=== PATIENT | male | born 1970 | race Caucasian/White ===

== ENCOUNTER 2019-01-15 10:01 | Day surgery (SDC) | payer OTHER ==
[2019-01-15] MEDS ORDERED: FLUMAZENIL 0.5 MG/5 ML MDV IVP PRN (10:26)
[2019-01-15] MEDS ORDERED: HEPARIN 10,000 UNIT/10 ML MDV (1,000 UNIT/ML) IVP PRN (10:26)
[2019-01-15] MEDS ORDERED: fentaNYL 100 MCG/2 ML INJ IVP PRN (10:26)
[2019-01-15] MEDS ORDERED: ALTEPLASE 2 MG VIAL IVP PRN (10:26)
[2019-01-15] MEDS ORDERED: MIDAZOLAM 2 MG/2 ML VIAL IVP PRN (10:26)
[2019-01-15] MEDS ORDERED: NALOXONE HCL 0.4 MG/ML INJ IVP PRN (10:26)
[2019-01-15] MEDS ORDERED: NS 1,000 ML IV SCH (10:30)
[2019-01-15] MEDS ORDERED: FLUMAZENIL 0.5 MG/5 ML MDV IVP ONE (11:34)
[2019-01-15] MEDS ORDERED: MIDAZOLAM 2 MG/2 ML VIAL ONE (11:35)
[2019-01-15] MEDS ORDERED: fentaNYL 100 MCG/2 ML INJ ONE ×2 (11:35)
[2019-01-15] MEDS ORDERED: NALOXONE HCL 0.4 MG/ML INJ ONE (11:36)
[2019-01-15] MEDS ORDERED: LIDOCAINE 1% 300 MG/30 ML SDV ONE (11:48)
--- NOTE | 2019-01-15 11:51 | PDPROPOC ---
Sedation Plan of Care Sedation Plan of Care: vital signs stable, mental status noted, patient educated of risks, benefits, alternatives, patient can tolerate sedation ASA Classification: ASA 2 Planned drugs: fentanyl, midazolam Mallampati Score: Class 2 Mallampati Reference Image: Patient passed 3-3-2 rule?: Yes
--- NOTE | 2019-01-15 11:52 | PDRADPRE ---
Radiology History & Physical Indication for procedure: other (Perigastric nodule concerning for maligancy. Plan for CT guided core biopsy. ) Home medications: Aleve 220 mg PO PRN PRN 01/09/19 [Last Taken Unknown] Escitalopram Oxalate 10 mg PO DAILY 01/09/19 [Last Taken Unknown] Flonase Nasal [place] 01/09/19 [Last Taken Unknown] Lisinopril 10 mg PO DAILY 01/09/19 [Last Taken Unknown] Pepcid 20 mg PO PRN PRN 01/09/19 [Last Taken Unknown] Sildenafil Citrate 40 mg PO PRN PRN 01/09/19 [Last Taken Unknown] Vit B Comp with C/Calcium Carb 01/09/19 [Last Taken Unknown] Vitamin D3 01/09/19 [Last Taken Unknown] ZYRTEC 10 mg PO PRN PRN 01/09/19 [Last Taken Unknown] Allergies/Adverse Reactions: No Known Allergies Allergy (Unverified 05/26/12 10:52) Mental status: A&Ox3 Heart exam: regular rate and rhythm Lungs exam: clear to auscultation Mallampati Score: Class 2
[2019-01-15] MEDS ORDERED: ONDANSETRON 4 MG/2 ML VIAL IVP PRN (13:08)
[2019-01-15] MEDS ORDERED: oxyCODONE IR 5 MG TAB PO PRN (13:08)
--- NOTE | 2019-01-15 13:10 | PDRADPN ---
Radiology Procedure Note Date of Procedure: 01/15/19 Radiologist: Nikos Pichardo Anesthesia: IV Sedation Pre-op Diagnosis: Abd mass Post-op Diagnosis: Abd mass Indication: Abd mass Procedure: CT guided biopsy Finding(s): 18 ga cores transhepatic approach. No hemorrhage on post CT scan. Inf/Abcess present in the surg proc area at time of surgery?: No
[2019-01-15] MEDS ORDERED: ACETAMINOPHEN 500 MG TAB PO ONE (16:45)
[2019-01-15] MEDS ORDERED: ONDANSETRON DISINTEGRATING 4 MG TAB ONE (16:45)
[2019-01-15] MEDS ORDERED: ACETAMINOPHEN 500 MG TAB ONE (16:45)
[2019-01-15] MEDS ORDERED: ONDANSETRON DISINTEGRATING 4 MG TAB PO ONE (17:00)
[2019-01-15 17:11] VITALS: BP 138/75
== END 2019-01-15 16:45 | disposition home or self-care (01) ==
LOC: FIMAGING 10:01
PROVIDERS: ATTEND Radiology Vascular & Interventional Radiology
DX: R59.0 Localized enlarged lymph nodes (principal); F32.9 Major depressive disorder, single episode, unspecified; F41.8 Other specified anxiety disorders; Z80.1 Family history of malignant neoplasm of trachea, bronchus and lung; Z80.8 Family history of malignant neoplasm of other organs or systems; R93.89 Abnormal findings on diagnostic imaging of other specified body structures
CPT/HCPCS: 88184-90; 88185-91; J2250; J2310; J3010

== ENCOUNTER 2019-02-13 14:24 | Day surgery (SDC) | payer OTHER ==
[2019-02-13] MEDS ORDERED: PROPOFOL/EMULSION 500 MG/50 ML BOTTLE IV ONE ×2 (14:35→16:00)
[2019-02-13] MEDS ORDERED: LIDOCAINE 2% 2 ML INJ ONE (14:35)
[2019-02-13] MEDS ORDERED: LR 1,000 ML IV ONE (14:36)
[2019-02-13] MEDS ORDERED: ceFAZolin 2 GM/DEXTROSE 100 ML IV ONE (14:52)
--- NOTE | 2019-02-13 14:52 | PDHPUP ---
History & Physical Update H&P update statement: This history and physical update is based on an assessment of the patient which was completed after admission or registration (within 24 hours), but prior to the surgery/procedure. H&P update: H&P reviewed & patient examined, no change in patient's condition since H&P completed
[2019-02-13] MEDS ORDERED: LIDOCAINE 1% 300 MG/30 ML SDV ONE (15:50)
[2019-02-13] MEDS ORDERED: BUPIVACAINE 0.5% 30 ML SDV ONE (15:50)
[2019-02-13] MEDS ORDERED: MIDAZOLAM 2 MG/2 ML VIAL IVP ONE (15:57)
--- NOTE | 2019-02-13 15:57 | PDANEPAE ---
ANE History of Present Illness enlarged lymph node ANE Past Medical History - Cardiovascular History Hx Hypertension: Yes Hx Arrhythmias: No Hx Chest Pain: No Hx Coronary Artery / Peripheral Vascular Disease: No Hx CHF / Valvular Disease: No Hx Palpitations: No - Pulmonary History Hx COPD: No Hx Asthma/Reactive Airway Disease: No Hx Recent Upper Respiratory Infection: No Hx Oxygen in Use at Home: No Hx Sleep Apnea: No Sleep Apnea Screening Result - Last Documented: Negative Pulmonary History Comment: SINUS INFECTIONS - Neurologic History Hx Cerebrovascular Accident: No Hx Seizures: No Hx Dementia: No Neurologic History Comment: intermittent Memory difficulty;. 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 sciatica. OCCAS HIVES - Chronic Pain History Chronic Pain: Yes (lower back pain) - Surgical History Prior Surgeries: BX IR PROCEDURE. vasectomy 2004;. wisdom teeth extraction; ANE Review of Systems Review of systems is: negative Review of Systems: - Exercise capacity Exercise capacity: >=4 METS METS (RN): 4 METS ANE Patient History - Allergies Allergies/Adverse Reactions: No Known Allergies Allergy (Unverified 05/26/12 10:52) - Home Medications Home medications: home medication list seen and reviewed Home Medications: Aleve 220 mg PO PRN PRN 01/09/19 [Last Taken 2 Days Ago ~02/11/19] Escitalopram Oxalate 10 mg PO DAILY 01/09/19 [Last Taken 02/13/19] Flonase Nasal [place] 01/09/19 [Last Taken 1 Week Ago ~02/06/19] Lisinopril 10 mg PO DAILY 01/09/19 [Last Taken 02/13/19] Pepcid 20 mg PO PRN PRN 01/09/19 [Last Taken 1 Week Ago ~02/06/19] Sildenafil Citrate 40 mg PO PRN PRN 01/09/19 [Last Taken 2 Weeks Ago ~01/30/19] Vit B Comp with C/Calcium Carb 01/09/19 [Last Taken 02/12/19] Vitamin D3 01/09/19 [Last Taken 02/12/19] ZYRTEC 10 mg PO PRN PRN 01/09/19 [Last Taken 02/06/19] - NPO status NPO Status: no food or drink >8 hours NPO Since - Liquids (Date): 02/13/19 NPO Since - Liquids (Time): 06:45 NPO Since - Solids (Date): 02/12/19 NPO Since - Solids (Time): 12:30 - Smoking Hx Smoking Status: Never smoked - Family Anes Hx Family Hx Anesthesia Complications: denies ANE Labs/Vital Signs - Vital Signs Vital Signs: reviewed preoperatively; see RN documention for details Blood Pressure: 150/102 Heart Rate: 84 Respiratory Rate: 16 O2 Sat (%): 92 Height: 175.26 cm Weight: 83.915 kg ANE Physical Exam - Airway Neck exam: FROM Mallampati Score: Class 2 Mouth exam: normal dental/mouth exam - Pulmonary Pulmonary: no respiratory distress, clear to auscultation - Cardiovascular Cardiovascular: regular rate and rhythym - ASA Status ASA Status: II ANE Anesthesia Plan Anesthesia Plan: GA w LMA
[2019-02-13] MEDS ORDERED: PROPOFOL 200 MG/20 ML VIAL ONE (16:00)
[2019-02-13] MEDS ORDERED: fentaNYL 100 MCG/2 ML INJ ONE (16:10)
[2019-02-13] MEDS ORDERED: DEXAMETHASONE 4 MG/ML VIAL ONE (16:34)
[2019-02-13] MEDS ORDERED: ONDANSETRON 4 MG/2 ML VIAL ONE (16:34)
[2019-02-13] MEDS ORDERED: DEXAMETHASONE 4 MG/ML VIAL IVP PRN (16:40)
[2019-02-13] MEDS ORDERED: fentaNYL 100 MCG/2 ML INJ IVP PRN (16:40)
[2019-02-13] MEDS ORDERED: NS 500 ML IV PRN (16:40)
[2019-02-13] MEDS ORDERED: METOCLOPRAMIDE 10 MG/2 ML VIAL IVP PRN (16:40)
[2019-02-13] MEDS ORDERED: PHENYLEPHRINE HCL 100 MCG/ML SYR IVP PRN (16:40)
[2019-02-13] MEDS ORDERED: MEPERIDINE 25 MG/0.5 ML AMP IVP PRN (16:40)
[2019-02-13] MEDS ORDERED: NALOXONE HCL 0.4 MG/ML INJ IVP PRN (16:40)
[2019-02-13] MEDS ORDERED: ACETAMINOPHEN 500 MG TAB PO PRN (16:40)
[2019-02-13] MEDS ORDERED: PROMETHAZINE HCL 25 MG/ML INJ IVP PRN (16:40)
[2019-02-13] MEDS ORDERED: oxyCODONE IR 5 MG TAB PO PRN (16:40)
[2019-02-13] MEDS ORDERED: ONDANSETRON 4 MG/2 ML VIAL IVP PRN (16:40)
[2019-02-13] MEDS ORDERED: ALBUTEROL 3 ML DEYVIAL IH PRN (16:40)
[2019-02-13] MEDS ORDERED: LABETALOL HCL 5 MG/ML 20 ML MDV IVP PRN (16:40)
[2019-02-13] MEDS ORDERED: HYDROmorphONE/DILAUDID 1 MG/ML INJ IVP PRN (16:40)
[2019-02-13] MEDS ORDERED: LR 500 ML IV PRN (16:40)
--- NOTE | 2019-02-13 16:53 | POSTOPPROG ---
Post Op Note Date of Operation: 02/13/19 Surgeon: Elida Kate Anesthesiologist: eliana Anesthesia: GET(General Endotracheal) Pre-op Diagnosis: lymphadenopathy Post-op Diagnosis: same Indication: 48 yo with lymphadenopathy Procedure: excisional biopsy deep cervical lymph node Findings: enlarged lymph nodes Inf/Abcess present in the surg proc area at time of surgery?: No EBL: Minimal Specimen(s): micro and path
[2019-02-13 17:49] VITALS: BP 120/92
[2019-02-13] MEDS ORDERED: ALBUTEROL 3 ML DEYVIAL ONE (18:40)
[2019-02-13] MEDS ORDERED: DIAZEPAM 2 MG TAB PO PRN (20:19)
[2019-02-13] MEDS ORDERED: DIAZEPAM 2 MG TAB PO ONE (20:45)
--- NOTE | 2019-02-14 16:05 | POSTANESTH ---
Post Anesthetic Evaluation Cardiovascular Status: Normal, Stable Respiratory Status: Normal, Stable Level of Consciousness/Mental Status: Can Participate in Eval Pain Control: Adequate, Prn Tx Ordered Nausea/Vomiting Control: Adequate, Prn Tx Ordered Complications Possibly Related to Anesthesia: None Noted
== END 2019-02-13 19:20 | disposition home or self-care (01) ==
LOC: FSGY 14:24
PROVIDERS: ATTEND Surgery
PROC: 07B10ZX Excision of Right Neck Lymphatic, Open Approach, Diagnostic (ICD-10-PCS; principal; 2019-02-13 16:00)
DX: R59.1 Generalized enlarged lymph nodes (principal)
CPT/HCPCS: 88184-90; 88185-91; J0690; J1100; J2250; J2405; J2704; J3010; J7613

== ENCOUNTER → 2019-03-04 | Outpatient (CLI) | payer OTHER | LOC: FCPNEURO 08:20 ==